=== PATIENT | female | born 1960 | race Caucasian/White ===

== ENCOUNTER 2019-01-06 23:10 | Emergency (ER) | payer MEDICAID ==
[~2019-01-06] VITALS: Ht 170.2 cm; Wt 77.1 kg
[2019-01-06] MEDS ORDERED: [UNRECOGNIZED DRUG - OTHER] (23:23)
[2019-01-06] MEDS ORDERED: TYLENOL EXTRA500 MG (23:24)
[2019-01-06] MEDS ORDERED: DEPAKOTE ER250 MG (23:25)
[2019-01-06] MEDS ORDERED: NEURONTIN 300300 M1 (23:26)
[2019-01-06] MEDS ORDERED: MAGOX 400400 MG (23:28)
[2019-01-06] MEDS ORDERED: ZPAK PO (23:28)
[2019-01-06] MEDS ORDERED: ACETAMINOPHEN-1 EAC1 PO (23:28)
[2019-01-06] MEDS ORDERED: VITAMIN D5000 UNIT (23:28)
[2019-01-06 23:33] VITALS: BP 144/93
== END 2019-01-06 23:34 | disposition home or self-care (01) ==
LOC: M.ERS 23:10
DX: H66.92 Otitis media, unspecified, left ear (principal); F17.200 Nicotine dependence, unspecified, uncomplicated; G43.909 Migraine, unspecified, not intractable, without status migrainosus; Z88.8 Allergy status to other drugs, medicaments and biological substances; Z88.0 Allergy status to penicillin

== ENCOUNTER 2019-04-15 12:54 | Emergency (ER) | payer MEDICAID ==
[~2019-04-15] VITALS: Ht 170.2 cm; Wt 76.2 kg
[~2019-04-15 12:54] MED LIST: ACETAMINOPHEN-1 EAC1 PO; DEPAKOTE ER250 MG; MAGOX 400400 MG; NEURONTIN 300300 M1; TYLENOL EXTRA500 MG; VITAMIN D5000 UNIT; ZPAK PO; [UNRECOGNIZED DRUG - OTHER]
[2019-04-15] MEDS ORDERED: COZAAR 25 MG TA25 M1 PO (13:09)
[2019-04-15] MEDS ORDERED: MEDROLDOSEPACK PO (14:10)
[2019-04-15] MEDS ORDERED: FLEXERIL PO (14:10)
[2019-04-15 14:41] VITALS: BP 134/84
== END 2019-04-15 14:42 | disposition home or self-care (01) ==
LOC: M.ERS 12:54
DX: M54.5 Low back pain (principal); G43.909 Migraine, unspecified, not intractable, without status migrainosus; I10 Essential (primary) hypertension; F41.9 Anxiety disorder, unspecified; F17.200 Nicotine dependence, unspecified, uncomplicated; Z88.0 Allergy status to penicillin; Z88.6 Allergy status to analgesic agent; Z91.040 Latex allergy status

== ENCOUNTER 2019-09-23 23:07 | Emergency (ER) | payer MEDICAID ==
[~2019-09-23] VITALS: Ht 170.2 cm; Wt 72.6 kg
[~2019-09-23 23:07] MED LIST changes: +COZAAR 25 MG TA25 M1 PO; +FLEXERIL PO; +MEDROLDOSEPACK PO
[2019-09-23] MEDS ORDERED: MAGNESIUM250 M1 PO (23:18)
[2019-09-23] MEDS ORDERED: [UNRECOGNIZED DRUG - OTHER] PO (23:19)
[2019-09-23] MEDS ORDERED: CLARITIN10 MG PO (23:20)
[2019-09-23] MEDS ORDERED: CIPRODEX OTIC7.5 ML OTIC (23:20)
[2019-09-23] MEDS ORDERED: LIPITOR40 MG PO (23:21)
[2019-09-23] MEDS ORDERED: PANTOPRAZOLE SO40 M1 PO (23:22)
[2019-09-23] MEDS ORDERED: LOSARTAN-HCTZ1 EAC3 PO (23:22)
[2019-09-23] MEDS ORDERED: DEPAKOTE ER500 M1 PO (23:23)
[2019-09-23] MEDS ORDERED: AMITRIPTYLINE H10 M1 PO (23:23)
[2019-09-23] MEDS ORDERED: VERAPAMIL E.R240 M1 PO (23:23)
[2019-09-23] MEDS ORDERED: VITAMIN D (23:24)
[2019-09-23 23:47] LABS: ABSOLUTE BASOPHILS 0.1 thou/uL (0.0-0.2); ABSOLUTE LYMPHOCYTES 2.6 thou/uL (0.8-5.3); ABSOLUTE MONOCYTES 0.5 thou/uL (0.0-1.2); ABSOLUTE NEUTROPHILS 3.4 thou/uL (1.6-8.1); BASOPHILS 0.9 %; EOSINOPHILS 0.5 %; HEMATOCRIT 41.6 % (37.0-47.0); HEMOGLOBIN 14.3 gm/dL (12.0-15.0); LYMPHOCYTES 39.2 %; MCH 32.1 pg (26.0-34.0); MCHC 34.3 g/dL (28.0-37.0); MCV 93.5 fL (80.0-100.0); MPV 10.7 fl. (7.2-11.1); NUCLEATED RBCS 0 /100WBC; PLATELET COUNT* 158 thou/uL (150-400); POLYS 51.4 %; RBC 4.45 mil/uL (4.20-5.00); RDW-CV 14.3 % (10.5-14.5); WBC 6.6 thou/uL (4.0-11.0)
[2019-09-24 00:04] LABS: URINE BILIRUBIN NEGATIVE (Negative); URINE BLOOD TRACE (Negative); URINE CLARITY CLEAR; URINE COLOR YELLOW; URINE GLUCOSE-RANDOM NEGATIVE (Negative); URINE KETONES NEGATIVE (Negative); URINE LEUKOCYTES-REFLEX NEGATIVE (Negative); URINE NITRITE-REFLEX NEGATIVE (Negative); URINE PROTEIN NEGATIVE (Negative); URINE UROBILINOGEN 0.2 E.U./dl (0.2-1.0)
[2019-09-24 00:05] LABS: CALCIUM 9.1 mg/dL (8.5-10.1); CREATININE 0.8 mg/dL (0.6-1.3); POTASSIUM 3.1 mmol/L (3.5-5.1)
[2019-09-24 00:08] LABS: APTT 24.9 Seconds (25.0-31.3); PROTIME 10.7 Seconds (9.20-11.50)
[2019-09-24] MEDS ORDERED: VERAPAMIL ER120 MG PO (00:09)
[2019-09-24 00:10] LABS: ALBUMIN 4.1 g/dL (3.4-5.0); TOTAL BILIRUBIN 0.1 mg/dL (<0.1-1.0)
[2019-09-24 00:11] LABS: AMP/METHAMP Negative (Negative); BARBITURATES POSITIVE (Negative); BENZODIAZEPINES POSITIVE (Negative); COCAINE Negative (Negative); METHADONE Negative (Negative); OPIATES Negative (Negative); PCP Negative (Negative); THC POSITIVE (Negative)
[2019-09-24 02:10] VITALS: BP 125/79
--- NOTE | 2019-09-24 16:47 | EKG ---
[place] [address] ELECTROCARDIOGRAM REPORT Name: DOMINGO MORENORISelene HENDERSON Room: 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
== END 2019-09-24 02:15 | disposition home or self-care (01) ==
LOC: M.ERS 23:07
PROVIDERS: Personal Emergency Response Attendant
DX: I16.0 Hypertensive urgency (principal); I10 Essential (primary) hypertension; F41.9 Anxiety disorder, unspecified; G43.909 Migraine, unspecified, not intractable, without status migrainosus; Z88.0 Allergy status to penicillin; Z88.6 Allergy status to analgesic agent; Z91.040 Latex allergy status; Z79.899 Other long term (current) drug therapy

== ENCOUNTER 2019-11-08 00:50 | Emergency (ER) | payer MEDICAID ==
[~2019-11-08] VITALS: Ht 170.2 cm; Wt 72.6 kg
[~2019-11-08 00:50] MED LIST changes: +AMITRIPTYLINE H10 M1 PO; +CIPRODEX OTIC7.5 ML OTIC; +CLARITIN10 MG PO; +DEPAKOTE ER500 M1 PO; +LIPITOR40 MG PO; +LOSARTAN-HCTZ1 EAC3 PO; +MAGNESIUM250 M1 PO; +PANTOPRAZOLE SO40 M1 PO; +VERAPAMIL E.R240 M1 PO; +VERAPAMIL ER120 MG PO; +VITAMIN D; +[UNRECOGNIZED DRUG - OTHER] PO
[2019-11-08] MEDS ORDERED: FLONASE 0.05%50 MCG NARES (01:26)
[2019-11-08] MEDS ORDERED: SUBOXONE 12 MG1 EACH SUBLING (01:27)
[2019-11-08 02:00] LABS: ABSOLUTE BASOPHILS 0.1 thou/uL (0.0-0.2); ABSOLUTE LYMPHOCYTES 3.1 thou/uL (0.8-5.3); ABSOLUTE MONOCYTES 0.6 thou/uL (0.0-1.2); BASOPHILS 1.2 %; EOSINOPHILS 0.7 %; HEMATOCRIT 39.8 % (37.0-47.0); HEMOGLOBIN 13.6 gm/dL (12.0-15.0); LYMPHOCYTES 45.4 %; MCH 31.7 pg (26.0-34.0); MCHC 34.3 g/dL (28.0-37.0); MCV 92.6 fL (80.0-100.0); MONOCYTES 9.1 %; MPV 11.4 fl. (7.2-11.1); NUCLEATED RBCS 0 /100WBC; PLATELET COUNT* 177 thou/uL (150-400); POLYS 43.6 %; RBC 4.29 mil/uL (4.20-5.00); RDW-CV 13.7 % (10.5-14.5); WBC 6.8 thou/uL (4.0-11.0)
[2019-11-08 02:07] LABS: CALCIUM 8.9 mg/dL (8.5-10.1); CREATININE 0.8 mg/dL (0.6-1.3)
[2019-11-08 02:18] LABS: MAGNESIUM 1.8 mg/dL (1.8-2.4); TOTAL BILIRUBIN 0.2 mg/dL (<0.1-1.0); TOTAL PROTEIN 7.8 g/dL (6.4-8.2)
[2019-11-08] MEDS ORDERED: POTASSIUM20 PO (03:27)
[2019-11-08] MEDS ORDERED: PERCOCET 5-3251 EACH PO (04:11)
[2019-11-08 04:59] VITALS: BP 130/82
--- NOTE | 2019-11-10 08:34 | EKG ---
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 11/10/19 0833 0129 0129 Wil Walter MD, FACC /EPI
== END 2019-11-08 04:59 | disposition home or self-care (01) ==
LOC: M.ERS 00:50
PROVIDERS: Emergency Medicine Emergency Medical Services
DX: I10 Essential (primary) hypertension (principal); E87.5 Hyperkalemia; E78.5 Hyperlipidemia, unspecified; G43.909 Migraine, unspecified, not intractable, without status migrainosus; F41.9 Anxiety disorder, unspecified; F17.210 Nicotine dependence, cigarettes, uncomplicated; Z91.040 Latex allergy status; Z88.0 Allergy status to penicillin; Z88.8 Allergy status to other drugs, medicaments and biological substances

== ENCOUNTER 2020-06-14 19:52 | Emergency (ER) | payer MEDICAID ==
[~2020-06-14] VITALS: Ht 170.2 cm; Wt 76.2 kg
[~2020-06-14 19:52] MED LIST changes: +FLONASE 0.05%50 MCG NARES; +PERCOCET 5-3251 EACH PO; +POTASSIUM20 PO; +SUBOXONE 12 MG1 EACH SUBLING
[2020-06-14 21:01] LABS: ABSOLUTE EOSINOPHILS 0.1 thou/uL (0.0-0.7); ABSOLUTE LYMPHOCYTES 3.2 thou/uL (0.8-5.3); ABSOLUTE MONOCYTES 0.6 thou/uL (0.0-1.2); ABSOLUTE NEUTROPHILS 2.6 thou/uL (1.6-8.1); BASOPHILS 0.7 %; EOSINOPHILS 1.1 %; HEMATOCRIT 41.5 % (37.0-47.0); HEMOGLOBIN 14.2 gm/dL (12.0-15.0); LYMPHOCYTES 49.5 %; MCH 31.5 pg (26.0-34.0); MCHC 34.3 g/dL (28.0-37.0); MCV 91.7 fL (80.0-100.0); MONOCYTES 8.9 %; MPV 10.7 fl. (7.2-11.1); NUCLEATED RBCS 0 /100WBC; PLATELET COUNT* 175 thou/uL (150-400); POLYS 39.8 %; RBC 4.52 mil/uL (4.20-5.00); RDW-CV 13.7 % (10.5-14.5); WBC 6.4 thou/uL (4.0-11.0)
[2020-06-14 21:08] LABS: CALCIUM 9.2 mg/dL (8.5-10.1); POTASSIUM 3.3 mmol/L (3.5-5.1)
[2020-06-14 21:15] LABS: PROTIME 10.7 Seconds (9.20-11.50)
[2020-06-14 21:16] LABS: URINE BILIRUBIN NEGATIVE (Negative); URINE BLOOD NEGATIVE (Negative); URINE CLARITY CLEAR; URINE COLOR YELLOW; URINE GLUCOSE-RANDOM NEGATIVE (Negative); URINE KETONES NEGATIVE (Negative); URINE LEUKOCYTES-REFLEX NEGATIVE (Negative); URINE NITRITE-REFLEX NEGATIVE (Negative); URINE PROTEIN NEGATIVE (Negative); URINE UROBILINOGEN 0.2 E.U./dl (0.2-1.0)
[2020-06-14 21:18] LABS: AMP/METHAMP Negative (Negative); BARBITURATES Negative (Negative); BENZODIAZEPINES Negative (Negative); COCAINE Negative (Negative); METHADONE Negative (Negative); OPIATES Negative (Negative); PCP Negative (Negative); THC POSITIVE (Negative)
[2020-06-14 21:18] LABS: ALBUMIN 4.2 g/dL (3.4-5.0); MAGNESIUM 1.8 mg/dL (1.8-2.4); TOTAL BILIRUBIN 0.2 mg/dL (<0.1-1.0)
[2020-06-14] MEDS ORDERED: VERAPAMIL ER240 M1 PO ×2 (22:25→23:01)
[2020-06-14 23:03] VITALS: BP 128/71
--- NOTE | 2020-06-15 13:18 | EKG ---
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: DONNIE : 1960 Requested By: Stacey Jasso Order Number: [id number] MD: Lang Palmer Measurements Intervals [place] Rate: 69 P: 146 NV: 153 QRS: 142 QRSD: 95 T: QT: 546 QTc: 585 Interpretive Statements Sinus rhythm with sinus pause and junctional escape left atrial enlargement Right axis deviation Low voltage, extremity leads Prolonged QT interval Lead(s) II were not used for morphology analysis Baseline wander in lead(s) V3 Compared to ECG 11/08/2019 01:29:23 Atrial abnormality now present Right-axis deviation now present Low QRS voltage now present Prolonged QT interval now present Electronically Signed On 06-15-2020 13:18:10 CDT by Lang Palmer [email or web address] <ELECTRONICALLY SIGNED> By: Lang Palmer MD, [facility] 06/15/20 1318 20 20 Lang Palmer MD, [facility] /EPI
== END 2020-06-14 23:03 | disposition home or self-care (01) ==
LOC: M.ERS 19:52
PROVIDERS: Emergency Medicine
DX: G43.909 Migraine, unspecified, not intractable, without status migrainosus (principal); I16.0 Hypertensive urgency; I10 Essential (primary) hypertension; E78.5 Hyperlipidemia, unspecified; F41.9 Anxiety disorder, unspecified; F17.210 Nicotine dependence, cigarettes, uncomplicated; Z91.040 Latex allergy status; Z88.0 Allergy status to penicillin; Z88.8 Allergy status to other drugs, medicaments and biological substances

== ENCOUNTER 2020-10-30 12:58 | Observation (INO) | payer MEDICAID ==
[~2020-10-30] VITALS: Ht 170.2 cm; Wt 81.7 kg
[~2020-10-30 12:58] MED LIST changes: -PANTOPRAZOLE SO40 M1 PO; +PROTONIX40 M2 PO; +VERAPAMIL ER240 M1 PO
[2020-10-30 13:00] VITALS: BP 172/97
[2020-10-30 14:46] LABS: ABSOLUTE EOSINOPHILS 0.2 thou/uL (0.0-0.7); ABSOLUTE LYMPHOCYTES 1.1 thou/uL (0.8-5.3); ABSOLUTE MONOCYTES 0.5 thou/uL (0.0-1.2); ABSOLUTE NEUTROPHILS 4.2 thou/uL (1.6-8.1); BASOPHILS 0.7 %; EOSINOPHILS 3.1 %; HEMATOCRIT 40.1 % (37.0-47.0); HEMOGLOBIN 13.7 gm/dL (12.0-15.0); LYMPHOCYTES 18.9 %; MCH 30.6 pg (26.0-34.0); MCV 89.9 fL (80.0-100.0); MONOCYTES 8.4 %; MPV 9.3 fl. (7.2-11.1); NUCLEATED RBCS 0 /100WBC; PLATELET COUNT* 178 thou/uL (150-400); POLYS 68.9 %; RBC 4.46 mil/uL (4.20-5.00); WBC 6.1 thou/uL (4.0-11.0)
[2020-10-30 14:53] LABS: CALCIUM 8.7 mg/dL (8.5-10.1); CREATININE 0.8 mg/dL (0.6-1.3); POTASSIUM 3.1 mmol/L (3.5-5.1)
[2020-10-30 14:57] LABS: ALBUMIN 3.8 g/dL (3.4-5.0); APTT 25.9 Seconds (25.0-31.3); PROTIME 10.9 Seconds (9.20-11.50); TOTAL BILIRUBIN 0.2 mg/dL (<0.1-1.0); TOTAL PROTEIN 7.6 g/dL (6.4-8.2)
[2020-10-30 15:56] LABS: URINE BLOOD NEGATIVE (Negative); URINE CLARITY CLEAR; URINE COLOR YELLOW; URINE GLUCOSE-RANDOM NEGATIVE (Negative); URINE KETONES NEGATIVE (Negative); URINE LEUKOCYTES-REFLEX NEGATIVE (Negative); URINE NITRITE-REFLEX NEGATIVE (Negative); URINE PROTEIN NEGATIVE (Negative); URINE UROBILINOGEN 0.2 E.U./dl (0.2-1.0)
[2020-10-30 16:00] LABS: ICTOTEST (BILI CONFIRMATORY) Negative (Negative); URINE BILIRUBIN 1+ (Negative)
[2020-10-30 16:05] LABS: AMP/METHAMP Negative (Negative); BARBITURATES Negative (Negative); BENZODIAZEPINES Negative (Negative); COCAINE Negative (Negative); METHADONE Negative (Negative); OPIATES Negative (Negative); PCP Negative (Negative); THC POSITIVE (Negative)
[2020-10-30 16:38] LABS: pH 7.319 (7.340-7.450)
[2020-10-30 16:40] LABS: PCO2 61.5 mmHg (35.0-45.0); PO2 46.4 mmHg (75.0-100.0)
[2020-10-30 16:56] LABS: BE 0.6 mmol/L (-2 to +3); pH 7.305 (7.340-7.450)
[2020-10-30 16:58] LABS: PCO2 58.2 mmHg (35.0-45.0); PO2 47.7 mmHg (75.0-100.0)
[2020-10-30 18:50] VITALS: BP 114/60
[2020-10-31] VITALS (9 sets, daily range): BP systolic 102–170; BP diastolic 44–93
[2020-10-31 04:51] LABS: ABSOLUTE EOSINOPHILS 0.1 thou/uL (0.0-0.7); ABSOLUTE MONOCYTES 0.5 thou/uL (0.0-1.2); ABSOLUTE NEUTROPHILS 2.2 thou/uL (1.6-8.1); BASOPHILS 0.8 %; EOSINOPHILS 2.4 %; HEMATOCRIT 37.9 % (37.0-47.0); HEMOGLOBIN 12.7 gm/dL (12.0-15.0); LYMPHOCYTES 41.3 %; MCH 30.3 pg (26.0-34.0); MCHC 33.5 g/dL (28.0-37.0); MCV 90.2 fL (80.0-100.0); MONOCYTES 10.9 %; NUCLEATED RBCS 0 /100WBC; PLATELET COUNT* 185 thou/uL (150-400); POLYS 44.6 %; WBC 4.8 thou/uL (4.0-11.0)
[2020-10-31 05:25] LABS: ALBUMIN 3.3 g/dL (3.4-5.0); CALCIUM 8.5 mg/dL (8.5-10.1); CREATININE 0.9 mg/dL (0.6-1.3); POTASSIUM 3.8 mmol/L (3.5-5.1); TOTAL BILIRUBIN 0.2 mg/dL (<0.1-1.0); TOTAL PROTEIN 6.8 g/dL (6.4-8.2)
--- NOTE | 2020-10-31 10:17 | EKG ---
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: ZAID : 1960 Requested By: Mary Gonsalez Order Number: [id number] MD: Wil Walter Measurements Intervals [place] Rate: 51 P: 78 [place]: 151 QRS: 37 QRSD: 103 T: 19 QT: 468 QTc: 432 Interpretive Statements sinus bradycardia Baseline wander in lead(s) V1 Compared to ECG 06/14/2020 20:21:10 Sinus rhythm no longer present Atrial abnormality no longer present Right-axis deviation no longer present Prolonged QT interval no longer present Electronically Signed On 10-31-2020 10:17:21 TECHNICAL PROPOSAL WRITER by Wil Walter [email or web address] <ELECTRONICALLY SIGNED> By: Wil Walter MD, FACC 10/31/20 1017 1314 1314 Wil Walter MD, [facility] /EPI
[2020-10-31 10:28] LABS: BE 4.8 mmol/L (-2 to +3); PO2 91.1 mmHg (75.0-100.0); pH 7.337 (7.340-7.450)
[2020-10-31 10:30] LABS: PCO2 61.8 mmHg (35.0-45.0)
[2020-10-31 11:43] LABS: CREATININE 0.8 mg/dL (0.6-1.3); POTASSIUM 3.4 mmol/L (3.5-5.1)
[2020-10-31 11:46] LABS: MAGNESIUM 1.9 mg/dL (1.8-2.4); PHOSPHORUS* 3.6 mg/dL (2.5-4.9)
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
[2020-11-01 04:04] LABS: ABSOLUTE LYMPHOCYTES 1.1 thou/uL (0.8-5.3); ABSOLUTE MONOCYTES 0.1 thou/uL (0.0-1.2); ABSOLUTE NEUTROPHILS 5.9 thou/uL (1.6-8.1); BASOPHILS 0.4 %; HEMATOCRIT 36.1 % (37.0-47.0); HEMOGLOBIN 12.1 gm/dL (12.0-15.0); LYMPHOCYTES 15.7 %; MCHC 33.6 g/dL (28.0-37.0); MCV 89.2 fL (80.0-100.0); MONOCYTES 0.8 %; MPV 10.3 fl. (7.2-11.1); NUCLEATED RBCS 0 /100WBC; PLATELET COUNT* 176 thou/uL (150-400); POLYS 83.1 %; RBC 4.05 mil/uL (4.20-5.00); RDW-CV 13.9 % (10.5-14.5); WBC 7.1 thou/uL (4.0-11.0)
[2020-11-01 04:08] LABS: ALBUMIN 3.3 g/dL (3.4-5.0); CALCIUM 9.1 mg/dL (8.5-10.1); CREATININE 0.8 mg/dL (0.6-1.3); TOTAL BILIRUBIN 0.2 mg/dL (<0.1-1.0); TOTAL PROTEIN 6.6 g/dL (6.4-8.2)
[2020-11-01 04:59] VITALS: BP 135/87
[2020-11-01 08:00] VITALS: BP 161/90
--- NOTE | 2020-11-01 10:22 | EKG ---
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
[2020-11-01] MEDS ORDERED: DOXYCYCLINE 10100 MG PO (12:36)
[2020-11-01] MEDS ORDERED: PREDNISONE 10 M10 MG PO (12:36)
[2020-11-01] MEDS ORDERED: VENTOLIN HFA 1818 GM INH (12:36)
[2020-11-01 13:46] VITALS: BP 135/87
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
== END 2020-11-01 14:00 | disposition home or self-care (01) ==
LOC: M.ERS 12:58 → M.TBA-ER 16:34 → M.2W 19:00
PROVIDERS: Personal Emergency Response Attendant; ADMIT Internal Medicine; ATTEND Internal Medicine
DX: J96.22 Acute and chronic respiratory failure with hypercapnia (principal); J96.21 Acute and chronic respiratory failure with hypoxia; G93.41 Metabolic encephalopathy; T65.91XA Toxic effect of unspecified substance, accidental (unintentional), initial encounter; I10 Essential (primary) hypertension; E78.5 Hyperlipidemia, unspecified; F41.9 Anxiety disorder, unspecified; M54.30 Sciatica, unspecified side; G43.909 Migraine, unspecified, not intractable, without status migrainosus; K57.92 Diverticulitis of intestine, part unspecified, without perforation or abscess without bleeding; F17.210 Nicotine dependence, cigarettes, uncomplicated; Z79.899 Other long term (current) drug therapy; Z20.828 Contact with and (suspected) exposure to other viral communicable diseases; Y92.89 Other specified places as the place of occurrence of the external cause; Z85.43 Personal history of malignant neoplasm of ovary